=== PATIENT | male | born 1975 | race Two or more races ===

== ENCOUNTER 2021-11-08 05:51 | Day surgery (SDC) | payer OTHER ==
[~2021-11-08 05:51] MED LIST: FENOFIBRA PO; GLUMETZA500 MG PO; METFORMIN PO
== END 2021-11-08 13:35 | disposition home or self-care (01) ==
LOC: CIR.AMB 05:51
PROVIDERS: ATTEND Surgery
DX: L72.0 Epidermal cyst (principal); Z88.8 Allergy status to other drugs, medicaments and biological substances; E78.5 Hyperlipidemia, unspecified; Z87.891 Personal history of nicotine dependence